=== PATIENT | male | born 1940 | race Caucasian/White ===

== ENCOUNTER → 2019-03-30 | Outpatient (CLI) | payer MEDICARE ==
--- NOTE | 2019-03-30 10:21 | Diagnostic Imaging Report ---
INDICATION: Knee pain. COMPARISON: None available. TECHNIQUE: 3 radiographs of left knee dated 03/30/2019. FINDINGS: No acute fracture or dislocation. No destructive osseous process. Joint spaces are well-maintained for age. Chondrocalcinosis medial and lateral menisci. No significant osteophyte formation. Tiny superior patellar enthesophyte formation. No joint effusion. Mild vascular calcifications. IMPRESSION: No acute osseous abnormality. 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 However, this can simply be seen with osteoarthritis. Dictated by: Dictated on workstation # [id number]
== END ==
LOC: RAD FS 09:39
PROVIDERS: ATTEND Nurse Practitioner
DX: M25.562 Pain in left knee (principal)
CPT/HCPCS: 73562

== ENCOUNTER 2021-01-26 14:10 | Emergency (ER) | payer MEDICARE ==
[~2021-01-26] VITALS: Ht 175.2 cm; Wt 94.5 kg
--- NOTE | 2021-01-26 14:13 | ED Chest Pain ---
General Stated Complaint: CHEST PAIN History of Present Illness Date Seen by Provider: Jan 26, 2021 Time Seen by Provider: 14:12 Initial Comments 80-year-old male presents with left-sided chest pain near his nipple. Reports that started about 30 minutes prior to arrival. Patient reports that he was on his break at [facility] when it happened. He took 1 nitro and is relieved it. Patient has a history of bypass and 2001. Patient denies any shortness of breath, nausea, vomiting, diaphoresis or radiation of the pain. He is pain-free upon arrival. Patient's chair mechanic is Dr. Romano at [facility]. Allergies and Home Medications Allergies Coded Allergies: No Known Drug Allergies (Unverified , 01/26/21) Patient Home Medication List Home Medication List Reviewed: Yes Review of Systems Review of Systems Constitutional: No chills, No fever Respiratory: Denies Cough, Denies Shortness of Air Cardiovascular: Chest Pain; Denies Lightheadedness, Denies Palpitations Gastrointestinal: Denies Abdominal Pain, Denies Nausea, Denies Vomiting Genitourinary: No Symptoms Reported Musculoskeletal: no symptoms reported Skin: no symptoms reported Psychiatric/Neurological: No Symptoms Reported Endocrine: No Symptoms Reported Hematologic/Lymphatic: No Symptoms Reported Physical Exam Vital Signs Vital Signs - First Documented Capillary Refill : Height, Weight, BMI Height: '" Weight: lbs. oz. kg; BMI Method: General Appearance: No Apparent Distress, WD/WN Respiratory: Lungs Clear, Normal Breath Sounds Cardiovascular: Regular Rate, Rhythm Gastrointestinal: Non Tender, Soft Extremity: Normal Capillary Refill, Normal Inspection Neurologic/Psychiatric: Alert, Oriented x3, commercial service technician II-XII Norm as Tested Skin: Normal Color, Warm/Dry Progress/Results/Core Measures Results/Orders Lab Results Laboratory Tests Test 01/26/21 14:18 01/26/21 16:15 Range/Units White Blood Count 7.2 4.3-11.0 10^3/uL Red Blood Count 4.20 L 4.35-5.85 10^6/uL Hemoglobin 13.4 13.3-17.7 G/DL Hematocrit 39 L 40-54 % Mean Corpuscular Volume 93 80-99 FL Mean Corpuscular Hemoglobin 32 25-34 PG Mean Corpuscular Hemoglobin Concent 34 32-36 G/DL Red Cell Distribution Width 13.2 10.0-14.5 % Platelet Count 199 130-400 10^3/uL Mean Platelet Volume 9.1 7.4-10.4 FL Immature Granulocyte % (Auto) 0 % Neutrophils (%) (Auto) 62 42-75 % Lymphocytes (%) (Auto) 26 12-44 % Monocytes (%) (Auto) 8 0-12 % Eosinophils (%) (Auto) 3 0-10 % Basophils (%) (Auto) 0 0-10 % Neutrophils # (Auto) 4.5 1.8-7.8 X 10^3 Lymphocytes # (Auto) 1.8 1.0-4.0 X 10^3 Monocytes # (Auto) 0.6 0.0-1.0 X 10^3 Eosinophils # (Auto) 0.2 0.0-0.3 10^3/uL Basophils # (Auto) 0.0 0.0-0.1 10^3/uL Immature Granulocyte # (Auto) 0.0 0.0-0.1 10^3/uL Prothrombin Time 14.5 12.2-14.7 SEC INR Comment 1.1 0.8-1.4 Activated Partial Thromboplast Time 38 H 24-35 SEC Sodium Level 137 135-145 MMOL/L Potassium Level 4.6 3.6-5.0 MMOL/L Chloride Level 101 98-107 MMOL/L Carbon Dioxide Level 26 21-32 MMOL/L Anion Gap 10 5-14 MMOL/L Blood Urea Nitrogen 33 H 7-18 MG/DL Creatinine 1.33 H 0.60-1.30 MG/DL Estimat Glomerular Filtration Rate 52 BUN/Creatinine Ratio 25 Glucose Level 146 H 70-105 MG/DL Calcium Level 9.5 8.5-10.1 MG/DL Corrected Calcium 9.4 8.5-10.1 MG/DL Magnesium Level 1.6 1.6-2.4 MG/DL Total Bilirubin 0.4 0.1-1.0 MG/DL Aspartate Amino Transf (AST/SGOT) 22 5-34 U/L Alanine Aminotransferase (ALT/SGPT) 22 0-55 U/L Alkaline Phosphatase 89 40-136 U/L Myoglobin 72.9 10.0-92.0 NG/ML Troponin I < 0.30 < 0.30 <0.30 NG/ML Total Protein 6.7 6.4-8.2 GM/DL Albumin 4.1 3.2-4.5 GM/DL My Orders Orders - BC LOPEZ L DO Cbc With Automated Diff (01/26/21 14:15) Magnesium (01/26/21 14:15) Chest 1 View Ap/Pa Only (01/26/21 14:15) Ekg Tracing (01/26/21 14:15) Comprehensive Metabolic Panel (01/26/21 14:15) Myoglobin Serum (01/26/21 14:15) Protime With Inr (01/26/21 14:15) Partial Thromboplastin Time (01/26/21 14:15) Monitor-Rhythm Ecg Trace Only (01/26/21 14:15) Aspirin Chewable Tablet (Baby Aspirin Ch (01/26/21 14:15) Ed Iv/Invasive Line Start (01/26/21 14:15) Troponin I Fs (01/26/21 14:15) Troponin I Fs (01/26/21 16:30) Medications Given in ED Current Medications Medications Dose Ordered Sig/Clint Route Start Time Stop Time Status Last Admin Dose Admin Aspirin 324 mg ONCE ONCE PO 01/26/21 14:15 01/26/21 14:16 DC 01/26/21 14:23 324 MG Vital Signs/I&O 01/26/21 01/26/21 01/26/21 14:13 14:13 17:00 Temp 36.4 36.3 Pulse 78 64 Resp 16 21 B/P (MAP) 159/88 (111) 149/64 (111) Pulse Ox 97 97 O2 Delivery Room Air Room Air Room Air Progress Progress Note : Progress Note Patient with negative EKG, negative troponin x2. Patient's pain remained resolved throughout the stay. Patient was offered admission for further cardiac work-up but declined at this time. They will call her chair mechanic in follow-up for an outpatient evaluation. He will return the ER as needed if the pain gets worse or returns. Patient stable upon discharge Diagnostic Imaging Diagonstic Imaging: Xray Plain Films/CT/US/NM/MRI: chest Comments Date of Exam:01/26/21 CHEST 1 VIEW AP/PA ONLY INDICATION: Chest pain. COMPARISON: No priors. FINDINGS: Sternal wires are midline. The heart size is within the upper limits of normal. There is elevation of the right diaphragm. There is no focal consolidation, effusion, or pneumothorax. IMPRESSION: Prior sternotomy without radiographic dehiscence, elevated right diaphragm, upper limits heart size, but no overt failure pattern, pneumonia, or pleural pathology. Departure Impression Primary Impression: Chest pain Qualified Codes: R07.9 - Chest pain, unspecified Disposition: 01 HOME, SELF-CARE Condition: Stable Departure-Patient Inst. Referrals: LM ARMANDO APRN (PCP) Primary Care Physician [facility] (Family) Primary Care Physician Patient Instructions: Chest Pain (DC), Angina (DC) Add. Discharge Instructions: Call your chair mechanic upon discharge to arrange for an outpatient appointment. Return to the ER as needed BC LOPEZ DO Jan 26, 2021 14:13
[2021-01-26] MEDS ORDERED: ASPIRIN 81 MG CHEW (CHILDREN'S ASA) PO ONE (14:15)
--- NOTE | 2021-01-26 14:35 | Diagnostic Imaging Report ---
INDICATION: Chest pain. COMPARISON: No priors. FINDINGS: Sternal wires are midline. The heart size is within the upper limits of normal. There is elevation of the right diaphragm. There is no focal consolidation, effusion, or pneumothorax. IMPRESSION: Prior sternotomy without radiographic dehiscence, elevated right diaphragm, upper limits heart size, but no overt failure pattern, pneumonia, or pleural pathology. Dictated by: Dictated on workstation # [id number]
[2021-01-26 14:37] LABS: HEMATOCRIT 39 % (40-54); HEMOGLOBIN 13.4 G/DL (13.3-17.7); MEAN CORPUSCULAR HEMOGLOBIN 32 PG (25-34); MEAN CORPUSCULAR HGB CONC 34 G/DL (32-36); MEAN CORPUSCULAR VOLUME 93 FL (80-99); WHITE BLOOD COUNT 7.2 10^3/uL (4.3-11.0)
[2021-01-26 14:38] LABS: BASOPHILS % (AUTO) 0 % (0-10); EOSINOPHILS # (AUTO) 0.2 10^3/uL (0.0-0.3); EOSINOPHILS % (AUTO) 3 % (0-10); LYMPHOCYTES # (AUTO) 1.8 X 10^3 (1.0-4.0); LYMPHOCYTES % (AUTO) 26 % (12-44); MEAN PLATELET VOLUME 9.1 FL (7.4-10.4); MONOCYTES # (AUTO) 0.6 X 10^3 (0.0-1.0); MONOCYTES % (AUTO) 8 % (0-12); NEUTROPHILS # (AUTO) 4.5 X 10^3 (1.8-7.8); NEUTROPHILS % (AUTO) 62 % (42-75); PLATELET COUNT 199 10^3/uL (130-400)
[2021-01-26 14:48] LABS: INR 1.1 (0.8-1.4); PROTHROMBIN TIME PATIENT 14.5 SEC (12.2-14.7)
[2021-01-26 14:59] LABS: BILIRUBIN,TOTAL 0.4 MG/DL (0.1-1.0); CALCIUM 9.5 MG/DL (8.5-10.1); CREATININE SERUM 1.33 MG/DL (0.60-1.30); MAGNESIUM 1.6 MG/DL (1.6-2.4); POTASSIUM 4.6 MMOL/L (3.6-5.0)
[2021-01-26 15:00] LABS: ALBUMIN 4.1 GM/DL (3.2-4.5); TOTAL PROTEIN 6.7 GM/DL (6.4-8.2)
[2021-01-26 17:00] VITALS: BP 149/64
== END 2021-01-26 17:00 | disposition home or self-care (01) ==
LOC: EDUNIT# 14:10 → ER FS 14:11
DX: R07.9 Chest pain, unspecified (principal)
CPT/HCPCS: 36415; 71045; 80053; 83735; 83874; 84484; 85025; 85610; 85730; 93005; 93041

== ENCOUNTER 2022-06-15 13:52 | Emergency (ER) | payer MEDICARE, OTHER ==
[~2022-06-15] VITALS: Ht 175.3 cm; Wt 97.1 kg
--- NOTE | 2022-06-15 14:27 | ED EENT ---
History of Present Illness General Chief Complaint: Nasal Problems Nursing Triage Note: Patient reports he has a sinus infection and started taking antibiotics on Saturday. He reports his nose began bleeding at 4 am this morning. He states he takes xarelto for atrial fibrillation. Source: patient Exam Limitations: no limitations History of Present Illness Date Seen by Provider: Jun 15, 2022 Time Seen by Provider: 14:00 Initial Comments Patient is an 82-year-old male with history of atrial fibrillation currently anticoagulated on Xarelto who presents with episodic nosebleeding involving his left nares since 4:00 this morning. Patient denies headache dizziness lightheadedness chest pain palpitation shortness of breath, hemoptysis, bloody stools or hematuria. No other symptoms or complaints. Timing/Duration: gradual Severity: mild Location: other Prearrival Treatment: other Modifying Factors: Improves With Other Associated Symptoms: other Allergies and Home Medications Allergies Coded Allergies: No Known Drug Allergies (Unverified , 01/26/21) Patient Home Medication List Home Medication List Reviewed: Yes Review of Systems Review of Systems Constitutional: see HPI Eyes: See HPI Ears: See HPI Nose: see HPI Mouth: see HPI Throat: see HPI Respiratory: see HPI Cardiovascular: see HPI Gastrointestinal: see HPI Musculoskeletal: see HPI Skin: see HPI Neurological: See HPI Hematologic/Lymphatic: See HPI Immunological/Allergic: see HPI All Other Systems Reviewed Negative Unless Noted: No Past [id number] Hx Patient Social History Tobacco Use?: No Use of E-Cig and/or Vaping dev: No Substance use?: No Alcohol Use?: No Pt feels they are or have been: No Past Medical History Surgery/Hospitalization HX: CAD, CABG-4 Vessel, HTN, Hyperlipidemia, A Fib, Skin cancer Physical Exam Vital Signs Vital Signs - First Documented 06/15/22 13:54 Temp 35.9 Pulse 68 Resp 18 B/P (MAP) 130/78 (95) Pulse Ox 98 O2 Delivery Room Air Height, Weight, BMI Height: '" Weight: lbs. oz. kg; 31.00 BMI Method: General Appearance: WD/WN, no apparent distress Eyes: bilateral eye normal inspection, bilateral eye PERRL, bilateral eye EOMI Nose: other (Fresh blood in left nares, no active bleeding, no posterior nasal bleeding.) Respiratory: lungs clear Neurologic/Psychiatric: alert, normal mood/affect, oriented x 3 Skin: normal color, warm/dry Progress/Results/Core Measures Results/Orders My Orders Orders - MARIA TERESA FERRELL DO Oxymetazoline 0.05% Nasal [place] (Afrin 0. (06/15/22 21:00) Vital Signs/I&O 06/15/22 13:54 Temp 35.9 Pulse 68 Resp 18 B/P (MAP) 130/78 (95) Pulse Ox 98 O2 Delivery Room Air Blood Pressure Mean: 95 Departure Communication (Admissions) Nasal clamp utilized for 20 minutes and Afrin nasal spray applied to both nostrils. No active bleeding. Recommendations are continued supportive care and watchful waiting with PCP/ENT follow-up as needed. Impression Primary Impression: Epistaxis Disposition: HOME, SELF-CARE Condition: Stable Departure-Patient Inst. Decision time for Depature: 14:27 Referrals: LM ARMANDO APRN (PCP) Primary Care Physician [facility] (Family) Primary Care Physician Patient Instructions: Nosebleeds ED Add. Discharge Instructions: Please apply 2 sprays of Afrin nasal spray to nostrils twice daily for the next 3 to 5 days. If nosebleed recurs, please nasal clamp for up to 90 minutes. Follow-up with your PCP and/or ENT as needed. Return to the ED if new or concerning symptoms All discharge instructions reviewed with patient and/or family. Voiced understanding. MARIA TERESA FERRELL DO Jun 15, 2022 14:27
[2022-06-15] MEDS ORDERED: OXYMETAZOLINE (AFRIN) 0.05% NA 30 ML BTL SCH ×2 (14:30→21:00)
[2022-06-15 14:31] VITALS: BP 130/78
== END 2022-06-15 14:31 | disposition home or self-care (01) ==
LOC: ER FS 13:52 → EDUNIT# 13:52 → ER FS 14:31
DX: R04.0 Epistaxis (principal); I48.91 Unspecified atrial fibrillation; Z95.1 Presence of aortocoronary bypass graft; Z79.01 Long term (current) use of anticoagulants
CPT/HCPCS: 99282